=== PATIENT | male | born 1935 | race Caucasian/White ===

== ENCOUNTER 2017-12-18 10:11 | Observation (INO) ==
[2017-12-18] MEDS ORDERED: Sod Chloride 0.9% Inj 1,000 ML IV.SIG ONE (10:41)
--- NOTE | 2017-12-18 10:46 | ED ---
HPI General Chief complaint: GI Bleed Stated complaint: rectal bleeding x 5 days Time Seen by Provider: 12/18/17 10:30 Source: patient Mode of arrival: ambulatory Limitations: no limitations History of Present Illness HPI narrative: Patient is an 82-year-old male who presents the emergency room with complaints of painless bright red rectal bleeding. Patient reports that he does take a baby aspirin daily, reports that for the past 5 days, he has noticed bright red blood in his stools. Patient reports that this has not gotten any better in fact, it has gotten worse. Patient reports that he does have history of hemorrhoids, reports that usually his hemorrhoids do hurt with bowel movements, patient with no pain with his rectal bleeding. Patient denies any abdominal pain, denies any nausea or vomiting, reports that he feels a little weakness. Patient reports that he did have a colonoscopy a few years ago which was negative. Patient with no history of a GI bleed in the past. Related Data Home Medications Medication Instructions Recorded Confirmed acetaminophen 650 mg PO Q6H PRN 12/18/17 12/18/17 aspirin [Aspir-Low] 81 mg PO DAILY 12/18/17 12/18/17 atorvastatin 40 mg PO DAILY 12/18/17 12/18/17 carvedilol 3.125 mg PO BID 12/18/17 12/18/17 cyanocobalamin (vitamin B-12) 1,000 mcg PO DAILY 12/18/17 12/18/17 docusate calcium 240 mg PO DAILY 12/18/17 12/18/17 fexofenadine 180 mg PO DAILY 12/18/17 12/18/17 glipizide 5 mg PO DAILY 12/18/17 12/18/17 losartan 50 mg PO DAILY 12/18/17 12/18/17 montelukast 10 mg PO QPM 12/18/17 12/18/17 pjgjadejjoga-gctqoopz-dpjzcj 1 tab PO DAILY 12/18/17 12/18/17 [Multivitamin 50 Plus] ranitidine HCl 150 mg PO BID 12/18/17 12/18/17 telmisartan 80 mg PO DAILY 12/18/17 12/18/17 torsemide 20 mg PO DAILY 12/18/17 12/18/17 Allergies Allergy/AdvReac Type Severity Reaction Status Date / Time Sulfa (Sulfonamide Allergy Rash Verified 12/18/17 10:18 Antibiotics) Review of Systems ROS: all other systems reviewed are negative [facility] Medical History Medical History Abdominal hernia (Acute) Diabetes 1.5, managed as type 2 (Acute) Hypercholesteremia (Acute) Hypertension (Acute) Pneumonia (Acute) Prostate cancer (Acute) Surgical History Surgical History H/O left inguinal hernia repair (Acute) H/O left knee surgery (Acute) H/O prostatectomy (Acute) Hx of cholecystectomy (Acute) S/P CABG x 1 (Acute) Social History Social History Substance History: No History of Abuse Second Hand Smoke Exposure: No Smoking Status: Former smoker How Often Do You Have a Drink Containing Alcohol: Monthly or less Recent Travel in [facility] within the Last 8 Weeks: No Recent Out of Country Travel within the Last 8 Weeks: No Exam Narrative Exam Narrative: GENERAL: Mild distress SKIN: Focused skin assessment warm/dry. HEAD: Atraumatic. Normocephalic. EYES: Pupils equal and round. No scleral icterus. No injection or drainage. ENT: No nasal bleeding or discharge. Mucous membranes pink and moist. NECK: Trachea midline. No JVD. CARDIOVASCULAR: Regular rate and rhythm. No murmur appreciated. RESPIRATORY: No accessory muscle use. Clear to auscultation. Breath sounds equal bilaterally. GASTROINTESTINAL: Abdomen soft, non-tender, nondistended. Hepatic and splenic margins not palpable. RECTAL: Exam performed with RN at bedside, patient does have a nonthrombosed external hemorrhoid which is not bleeding, on rectal exam, patient also has heme positive melanotic stool. MUSCULOSKELETAL: No obvious deformities. No clubbing. No cyanosis. No edema. NEUROLOGICAL: Awake and alert. No obvious cranial nerve deficits. Motor grossly within normal limits. Normal speech. PSYCHIATRIC: Appropriate mood and affect; insight and judgment normal. Course Initial Documented Vital Signs Temperature 97.8 F 12/18/17 10:14 Pulse Rate 86 12/18/17 10:14 Respiratory Rate 20 12/18/17 10:14 Blood Pressure 178/77 H 12/18/17 10:14 Pulse Oximetry 91 L 12/18/17 10:14 Last Documented Vital Signs Temperature 97.8 F 12/18/17 10:14 Pulse Rate 82 12/18/17 11:13 Respiratory Rate 18 12/18/17 11:13 Blood Pressure 156/72 H 12/18/17 11:13 Pulse Oximetry 92 L 12/18/17 11:14 Medical Decision Making MDM Narrative Medical decision making narrative: During the course of the patients emergency department visit, the patients history, examination, and differential diagnosis were reviewed with the patient. The patient was placed on a sheet metal technician with oximetry and frequent blood pressure monitoring. The patient had an IV access obtained and blood work sent for analysis. The patient was initially provided IV fluids. I ordered a CT of the abdomen and pelvis without contrast for further evaluation of his GI bleed. Patient describes his symptoms as a bright red blood in stools, on exam, he does have cher melena and I am concerned for possible GI bleed. Patient will be typed and screened, CBC as well as CMP was ordered. Ultimately, patient understands need for admission to the hospital for workup of his GI bleed. I do not think that this GI bleed is due to external hemorrhoids The patients laboratory studies were reviewed and remarkable for a hemoglobin of 10.1, coags are within normal limits. Radiology studies were reviewed and remarkable for: CT of the abdomen and pelvis without contrast shows a moderate sigmoid and scattered colonic diverticulosis without definite eminence of difficult colitis Patient with melanotic stool, patient will require a GI workup and admission to the hospital. Call made to hospitalist for admission. case reviewed with Dr. Gonzalez who accepts pt to service Medical Screen Exam Complete: Yes Emergency Medical Condition: Yes Differential Diagnosis Differential Diagnosis: Differential includes external hemorrhoids, internal hemorrhoids, colitis, diverticulitis, gastric ulcer, duodenal ulceration Lab Data Result diagrams: 12/18/17 10:30 12/18/17 10:30 Lab Results 12/18/17 12/18/17 12/18/17 Range/Units 10:30 10:30 10:30 CBC w Diff Auto diff final WBC 9.3 (4.0-11.0) th/mm3 RBC 3.45 L (4.50-5.90) mil/mm3 Hgb 10.1 L (13.0-17.0) gm/dL Hct 31.9 L (39.0-51.0) % MCV 92.6 (80.0-100.0) fL MCH 29.3 (27.0-34.0) pg MCHC 31.6 L (32.0-36.0) % RDW 13.6 (11.6-17.2) % Plt Count 230 (150-450) th/mm3 MPV 7.9 (7.0-11.0) fL Neut % (Auto) 62.6 (16.0-70.0) % Lymph % (Auto) 23.7 (9.0-44.0) % [place] % (Auto) 11.0 H (0.0-8.0) % Eos % (Auto) 2.4 (0.0-4.0) % Baso % (Auto) 0.3 (0.0-2.0) % Neut # (Auto) 5.9 (1.8-7.7) th/mm3 Lymph # (Auto) 2.2 (1.0-4.8) th/mm3 [place] # (Auto) 1.0 H (0.0-0.9) th/mm3 Eos # (Auto) 0.2 (0.0-0.4) th/mm3 Baso # (Auto) 0.0 (0.0-0.2) th/mm3 WBC Differential . Differential Comment . PT 10.6 (9.8-11.6) sec INR 1.0 Ratio APTT 24.7 (23.4-31.7) sec Sodium 144 (136-145) meq/L Potassium 4.2 (3.5-5.1) meq/L Chloride 103 (98-107) meq/L Carbon Dioxide 36.3 H (21.0-32.0) meq/L Anion Gap 5 (5-15) meq/L BUN 21 H (7-18) mg/dL Creatinine 1.20 (0.60-1.30) mg/dL Estimated GFR 58 L (>89) mL/min Random Glucose 317 H (74-106) mg/dL Calcium 8.6 (8.5-10.1) mg/dL Total Bilirubin 0.3 (0.2-1.0) mg/dL AST 15 (15-37) U/L ALT 24 (12-78) U/L Alkaline Phosphatase 93 (45-117) U/L Total Protein 7.3 (6.4-8.2) g/dL Albumin 3.2 L (3.4-5.0) g/dL Imaging Data Radiologist's impression: Abdomen/Pelvis CT 12/18/17 10:41 CONCLUSION: 1. No acute CT abnormality in the abdomen or pelvis. 2. Moderate sigmoid and scattered colonic diverticulosis without definitive evidence for diverticulitis. 3. Additional ancillary findings, as above. Discharge Plan Discharge Disposition Patient Disposition: 30 Still Patient Discharge Condition Condition: Stable Discharge Details Diagnosis: Melena, GI bleed Physicians Team ED Provider: Cynthia Torres Primary Care Provider: [facility] /Orders / Referrals /Forms Prescriptions: No Action losartan 50 mg Tablet 50 mg PO DAILY RF: 0 atorvastatin 40 mg Tablet 40 mg PO DAILY RF: 0 torsemide 20 mg Tablet 20 mg PO DAILY RF: 0 docusate calcium 240 mg Capsule 240 mg PO DAILY RF: 0 cyanocobalamin (vitamin B-12) 1,000 mcg Tablet 1,000 mcg PO DAILY RF: 0 fexofenadine 180 mg Tablet 180 mg PO DAILY RF: 0 carvedilol 3.125 mg Tablet 3.125 mg PO BID RF: 0 ranitidine HCl 150 mg Tablet 150 mg PO BID RF: 0 telmisartan 80 mg Tablet 80 mg PO DAILY RF: 0 montelukast 10 mg Tablet 10 mg PO QPM RF: 0 glipizide 5 mg Tablet 5 mg PO DAILY RF: 0 eugwnubafuph-mzgcmbor-opcxhv [Multivitamin 50 Plus] Tablet 1 tab PO DAILY RF: 0 acetaminophen 325 mg Capsule 650 mg PO Q6H PRN (Reason: Pain) RF: 0 aspirin [Aspir-Low] 81 mg Tablet,Delayed Release (Dr/Ec) 81 mg PO DAILY RF: 0 Status ED Status: With Doctor
[2017-12-18 11:03] LABS: Baso % (Auto) 0.3 % (0.0-2.0); Eos # (Auto) 0.2 th/mm3 (0.0-0.4); Eos % (Auto) 2.4 % (0.0-4.0); Hematocrit 31.9 % (39.0-51.0); Hemoglobin 10.1 gm/dL (13.0-17.0); Lymph # (Auto) 2.2 th/mm3 (1.0-4.8); Lymph % (Auto) 23.7 % (9.0-44.0); Mean Corpuscular HGB Conc 31.6 % (32.0-36.0); Mean Corpuscular Hemoglobin 29.3 pg (27.0-34.0); Mean Corpuscular Volume 92.6 fL (80.0-100.0); Mean Platelet Volume 7.9 fL (7.0-11.0); Neut # (Auto) 5.9 th/mm3 (1.8-7.7); Neut % (Auto) 62.6 % (16.0-70.0); Platelet Count 230 th/mm3 (150-450); Red Blood Count 3.45 mil/mm3 (4.50-5.90); Red Cell Distribution Width 13.6 % (11.6-17.2); White Blood Count 9.3 th/mm3 (4.0-11.0)
[2017-12-18 11:12] LABS: Chloride 103 meq/L (98-107); Potassium 4.2 meq/L (3.5-5.1); Sodium 144 meq/L (136-145)
[2017-12-18 11:15] LABS: Calcium 8.6 mg/dL (8.5-10.1)
[2017-12-18 11:16] LABS: Activated Partial Thrombo Time 24.7 sec (23.4-31.7); Albumin 3.2 g/dL (3.4-5.0); Anion Gap 5 meq/L (5-15); Blood Urea Nitrogen 21 mg/dL (7-18); Carbon Dioxide 36.3 meq/L (21.0-32.0); Glucose,Random 317 mg/dL (74-106); Prothrombin Time 10.6 sec (9.8-11.6)
[2017-12-18 11:19] LABS: Alanine Aminotransferase 24 U/L (12-78); Aspartate Aminotransferase 15 U/L (15-37); Glomerular Filtration Rate 58 mL/min (>89)
[2017-12-18 11:20] LABS: Total Protein 7.3 g/dL (6.4-8.2)
--- NOTE | 2017-12-18 11:20 | CT ---
EXAM DATE: 12/18/2017 11:05 AM EST AGE/SEX: 82 years / Male INDICATIONS: Rectal bleeding. Blood in stool. CLINICAL DATA: This is the patient's initial encounter. Patient reports that signs and symptoms have been present for 4 - 6 days and indicates a pain score of 0/10. MEDICAL/SURGICAL HISTORY: Carcinoma, prostatic. Diabetes. Hypertension. Inguinal hernia repai r. Prostatectomy. Cholecystectomy. CABG. RADIATION DOSE: 24.50 CTDI (mGy) ; Patient body habitus COMPARISON: No prior exams available for comparison. TECHNIQUE: Multiple contiguous axial images were obtained through the abdomen. Images were obtained using multiple row detector helical technique. Using automated exposure control and adjustment of the mA and/or kV according to patient size, radiation dose was kept as low as reasonably achievable to o btain optimal diagnostic quality images. DICOM format image data is available electronically for rev iew and comparison. FINDINGS: LOWER LUNGS: The visualized lower lungs are clear. LIVER: Diffusely homogeneous density without intrahepatic ductal dilatation or volume loss. There is a 17 mm well-defined cystic density mass adjacent to the inferior right lobe of the liver. This does not appear to arise from the liver. This may reflect an old evolved hematoma amongst other etiologie s. SPLEEN: Homogeneous density without enlargement. PANCREAS: Grossly unremarkable. KIDNEYS: Kidneys are symmetrical in size without evidence for radiopaque renal calculi or hydronephr osis. No significant contour deforming renal abnormality. ADRENAL GLANDS: Unremarkable. AORTA: Jillian-aneurysmal. BOWEL/MESENTERY: Scattered colonic diverticulosis with moderate sigmoid diverticulosis. No definitiv e inflammatory change to suggest diverticulitis. Normal appendix. Bowel loops are normal in caliber w ithout evidence for obstruction. There is no free fluid or drainable fluid collections. There is no f ree air. ABDOMINAL WALL: Intact. BLADDER: Decompressed but otherwise unremarkable. REPRODUCTIVE: Status post prostatectomy. BONY STRUCTURES: Degenerative spondylosis of the lumbar spine. CONCLUSION: 1. No acute CT abnormality in the abdomen or pelvis. 2. Moderate sigmoid and scattered colonic diverticulosis without definitive evidence for diverticuli tis. 3. Additional ancillary findings, as above. Electronically signed by: Hipolito Lim MD 12/18/2017 11:19 AM EST
[2017-12-18 11:22] LABS: Alkaline Phosphatase 93 U/L (45-117)
[2017-12-18] MEDS ORDERED: Acetaminophen 325 MG Tablet PO PRN (11:26)
[2017-12-18] MEDS ORDERED: Bisacodyl 10 MG Supp RECTAL PRN (11:26)
[2017-12-18] MEDS ORDERED: Dextrose 50% in Water 50 ML Vial IV.PUSH PRN (11:30)
--- NOTE | 2017-12-18 12:07 | P.HP ---
History of Present Illness Service: Hospitalist Primary Care Physician: [facility] Chief Complaint: Rectal bleed. History of Present Illness: Mr. Rai is a pleasant 82-year-old male with a history of CAD status post CABG, diabetes mellitus, hypertension who presented to the emergency department on 12/18/2017 due to painless bright red rectal bleeding that started 5 days prior to this admission. Patient takes baby aspirin a day. He reports no nausea vomiting or diaphoresis. He reports no melena or hematemesis. He does report increasing leg swelling despite taking torsemide. Denies any shortness of breath. Denies any changes in bladder habits. He recently moved here from [place]. He goes to [place] for [facility] care. His last colonoscopy was approximately 2 years ago. Upon admission, his hemoglobin is 10.1. Past medical history: Hypertension, hyperlipidemia, GERD, diabetes mellitus, CAD , COPD, prostate cancer Past surgical history CABG, cholecystectomy, prostate surgery Social history: Patient denies using tobacco or alcohol currently. Family history: Negative for Alzheimer's or Parkinson's. Review of Systems All other systems reviewed negative except as stated in HPI PMFSH - History History Provided By: Patient - Medical History Medical History: Medical History (Last Reviewed 12/18/17 @ 12:48 by Saray Gonzalez DO) Abdominal hernia Diabetes 1.5, managed as type 2 Hypercholesteremia Hypertension Pneumonia Prostate cancer - Surgical History Surgical History: Surgical History (Last Reviewed 12/18/17 @ 12:48 by Saray Gonzalez DO) H/O left inguinal hernia repair H/O left knee surgery H/O prostatectomy Hx of cholecystectomy S/P CABG x 1 - Tobacco History Second Hand Smoke Exposure: No Tobacco Use In Past 30 Days: No (QUIT 2001) Smoking Status: Former smoker - Alcohol History How Often Do You Have a Drink Containing Alcohol: Monthly or less - Substance Use History Substance History: No History of Abuse - Travel History Recent Travel in the [place] Within the Last 8 Weeks: No Recent Travel Out of the Country Within the Last 8 Weeks: No - Immunization History Tetanus Immunization: <5 Years Medications and Allergies Active Medications: Active Medications Acetaminophen (Tylenol) 650 mg PO Q4H PRN PRN Reason: Headache, fever, pain 1-4 Al Hydroxide/Mg Hydroxide (Milk Of Magnesia Liq) 30 ml PO Q12H PRN PRN Reason: Mild Constipation Bisacodyl (Dulcolax Supp) 10 mg RECTAL DAILY PRN PRN Reason: SEVERE CONSITIPATION Dextrose (D50w Vial) 50 ml IV.PUSH UNSCH PRN PRN Reason: PER HYPOGLYCEMIA PROTOCOL Glucagon (Glucagon Inj) 1 mg OTHER PRN PRN PRN Reason: for Hypoglycemia Protocol Insulin Aspart (Novolog Insulin Correctional Sugar Inj) 0 unit SQ ACHS LEVI; Protocol Insulin Detemir (Levemir Inj) 7 unit SQ HS LEVI Lactulose (Lactulose Liq) 30 ml PO DAILY PRN PRN Reason: SEVERE CONSITIPATION Ondansetron HCl (Zofran Inj) 4 mg IV.PUSH Q6H PRN PRN Reason: NAUSEA OR VOMITING Pantoprazole Sodium (Protonix Inj) 40 mg IV.PUSH Q12H LEVI Sennosides (Senokot) 17.2 mg PO Q12H PRN PRN Reason: Moderate Constipation Sodium Chloride (Ns Flush) 2 ml IV.FLUSH PRN PRN PRN Reason: FLUSH AFTER USING IV ACCESS Allergies Allergy/AdvReac Type Severity Reaction Status Date / Time Sulfa (Sulfonamide Allergy Rash Verified 12/18/17 10:18 Antibiotics) Home Medications Medication Instructions Recorded Confirmed Type acetaminophen 650 mg PO Q6H PRN 12/18/17 12/18/17 History aspirin [Aspir-Low] 81 mg PO DAILY 12/18/17 12/18/17 History atorvastatin 40 mg PO DAILY 12/18/17 12/18/17 History carvedilol 3.125 mg PO BID 12/18/17 12/18/17 History cyanocobalamin (vitamin B-12) 1,000 mcg PO DAILY 12/18/17 12/18/17 History docusate calcium 240 mg PO DAILY 12/18/17 12/18/17 History fexofenadine 180 mg PO DAILY 12/18/17 12/18/17 History glipizide 5 mg PO DAILY 12/18/17 12/18/17 History losartan 50 mg PO DAILY 12/18/17 12/18/17 History montelukast 10 mg PO QPM 12/18/17 12/18/17 History eytvzaozjhti-lviruxpm-deandb 1 tab PO DAILY 12/18/17 12/18/17 History [Multivitamin 50 Plus] ranitidine HCl 150 mg PO BID 12/18/17 12/18/17 History telmisartan 80 mg PO DAILY 12/18/17 12/18/17 History torsemide 20 mg PO DAILY 12/18/17 12/18/17 History Exam Vital signs: Vital Signs 12/18/17 10:14 12/18/17 11:13 12/18/17 11:14 Temperature 97.8 F Pulse Rate 86 82 Respiratory Rate 20 18 Blood Pressure 178/77 H 156/72 H Pulse Oximetry 91 L 92 L 92 L Intake & Output 12/17/17 12/18/17 12/18/17 18:59 06:59 18:59 Weight 117 kg Other: Date of Last Bowel Movement 12/18/17 Narrative: GENERAL: This is a well-nourished, well-developed patient, in no apparent distress. Morbidly obese SKIN: No rashes, ecchymoses or lesions. Warm and dry. HEAD: Atraumatic. Normocephalic. No temporal or scalp tenderness. EYES: Pupils equal round and reactive. No injection or drainage. ENT: Nose without bleeding, purulent drainage or septal hematoma. Airway patent. NECK: Trachea midline. No lymphadenopathy. Supple, nontender, no meningeal signs. CARDIOVASCULAR: Regular rate and rhythm without murmurs, gallops, or rubs. No JVD. RESPIRATORY: Moderate air entry. No appreciable wheezing. Minor crackles in the lung bases. GASTROINTESTINAL: Abdomen soft, non-tender, nondistended. No guarding. MUSCULOSKELETAL: Extremities without clubbing, cyanosis. 2+ edema in lower extremities. NEUROLOGICAL: Awake and alert. Cranial nerves II through XII intact. No focal neurological deficits. Normal speech. Results - Labs CBC & Chem 7: 12/18/17 10:30 12/18/17 10:30 Labs: Laboratory Results - last 24 hr 12/18/17 12/18/17 12/18/17 10:30 10:30 10:30 CBC w Diff Auto diff final WBC 9.3 RBC 3.45 L Hgb 10.1 L Hct 31.9 L MCV 92.6 MCH 29.3 MCHC 31.6 L RDW 13.6 Plt Count 230 MPV 7.9 Neut % (Auto) 62.6 Lymph % (Auto) 23.7 [place] % (Auto) 11.0 H Eos % (Auto) 2.4 Baso % (Auto) 0.3 Neut # (Auto) 5.9 Lymph # (Auto) 2.2 [place] # (Auto) 1.0 H Eos # (Auto) 0.2 Baso # (Auto) 0.0 WBC Differential . Differential Comment . PT 10.6 INR 1.0 APTT 24.7 Sodium 144 Potassium 4.2 Chloride 103 Carbon Dioxide 36.3 H Anion Gap 5 BUN 21 H Creatinine 1.20 Estimated GFR 58 L POC Glucose Random Glucose 317 H Calcium 8.6 Total Bilirubin 0.3 AST 15 ALT 24 Alkaline Phosphatase 93 Total Protein 7.3 Albumin 3.2 L 12/18/17 11:40 CBC w Diff WBC RBC Hgb Hct MCV MCH MCHC RDW Plt Count MPV Neut % (Auto) Lymph % (Auto) [place] % (Auto) Eos % (Auto) Baso % (Auto) Neut # (Auto) Lymph # (Auto) [place] # (Auto) Eos # (Auto) Baso # (Auto) WBC Differential Differential Comment PT INR APTT Sodium Potassium Chloride Carbon Dioxide Anion Gap BUN Creatinine Estimated GFR POC Glucose 266 H Random Glucose Calcium Total Bilirubin AST ALT Alkaline Phosphatase Total Protein Albumin - Imaging Impressions Abdomen/Pelvis CT 12/18/17 10:41 CONCLUSION: 1. No acute CT abnormality in the abdomen or pelvis. 2. Moderate sigmoid and scattered colonic diverticulosis without definitive evidence for diverticulitis. 3. Additional ancillary findings, as above. Caprini VTE Risk Assessment Caprini VTE Risk Assessment: No/Low Risk (score <= 1) Caprini Risk Assessment Model: Point Value = 1 Point Value = 2 Point Value = 3 Point Value = 5 Age 41-60 Minor surgery BMI > 25 kg/m2 Swollen legs Varicose veins or History of unexplained or recurrent spontaneous Oral contraceptives or hormone replacement Sepsis (< 1 month) Serious lung disease, including pneumonia (< 1 month) Abnormal pulmonary function Acute myocardial infarction Congestive heart failure (< 1 month) History of inflammatory bowel disease Medical patient at bed rest Age 61-74 Arthroscopic surgery Major open surgery (> 45 min) Laparoscopic surgery (> 45 min) Malignancy Confined to bed (> 72 hours) Immobilizing plaster cast Central venous access Age >= 75 History of VTE Family history of VTE Factor V Leiden Prothrombin [id number] Lupus anticoagulant Anticardiolipin antibodies Elevated serum homocysteine Heparin-induced thrombocytopenia Other congenital or acquired thrombophilia Stroke (< 1 month) Elective arthroplasty Hip, pelvis, or leg fracture Acute spinal cord injury (< 1 month) Prophylaxis Regimen: Total Risk Factor Score Risk Level Prophylaxis Regimen 0-1 Low Early ambulation 2 Moderate Order ONE of the following: *Sequential Compression Device (SCD) *Heparin 5000 units SQ BID 3-4 Higher Order ONE of the following medications: *Heparin 5000 units SQ TID *Enoxaparin/Lovenox 40 mg SQ daily (WT < 150 kg, CrCl > 30 mL/min) *Enoxaparin/Lovenox 30 mg SQ daily (WT < 150 kg, CrCl > 10-29 mL/min) *Enoxaparin/Lovenox 30 mg SQ BID (WT < 150 kg, CrCl > 30 mL/min) AND/OR *Sequential Compression Device (SCD) 5 or more Highest Order ONE of the following medications: *Heparin 5000 units SQ TID (Preferred with Epidurals) *Enoxaparin/Lovenox 40 mg SQ daily (WT < 150 kg, CrCl > 30 mL/min) *Enoxaparin/Lovenox 30 mg SQ daily (WT < 150 kg, CrCl > 10-29 mL/min) *Enoxaparin/Lovenox 30 mg SQ BID (WT < 150 kg, CrCl > 30 mL/min) AND *Sequential Compression Device (SCD) Assessment and Plan - Plan Mr. Lopez is a pleasant 82-year-old male with a history of CAD status post CABG, diabetes mellitus, hypertension who presents to the emergency department due to rectal bleeding that started about 5 days ago. Patient denies any emesis or melena. Hemoglobin 10.1 on admission. Acute GI bleed Start patient on Protonix 40 mg IV every 12 hours Consult GI for possible colonoscopy. No indication to transfuse currently. Will transfuse if hemoglobin drops further. CAD status post CABG Congestive heart failure unknown whether systolic or diastolic We will continue torsemide 20 mg daily. Continue Coreg 3.125 twice daily Continue atorvastatin 40 mg daily Diabetes mellitus Start sliding scale insulin and Levemir 7 units nightly. Full code. SCDs.
[2017-12-18] MEDS: Pantoprazole Inj 40 MG Vial IV.PUSH SCH (12:23)
[2017-12-18] MEDS ORDERED: PEG 3350/E-Lyte Soln 4000 ML Bottle PO ONE (13:10)
--- NOTE | 2017-12-18 13:39 | MB ---
cc: Rajiv German MD, Shahabuddin DO Zulfiqar, Hassan MD DATE: 12/18/2017 REASON FOR CONSULTATION: Rectal bleeding and anemia. HISTORY OF PRESENT ILLNESS: Mr. Rai is an 82-year-old gentleman with painless rectal bleeding for the last 4 days. He said he has been having intermittent red blood. Initially, he thought this was related to his hemorrhoids, but he states the bleeding has persisted and has been more than what he has had before with his hemorrhoids. He reports a colonoscopy about 2 years ago through the [place] [facility]. He says he may have had diverticulosis and polyps, but he is not sure of the findings. PAST MEDICAL HISTORY: Hypertension, hyperlipidemia, reflux disease, diabetes, coronary artery disease, COPD, history of prostate cancer. PAST SURGICAL HISTORY: Cholecystectomy, prostate surgery, coronary artery bypass surgery. SOCIAL HISTORY: No tobacco, no alcohol. FAMILY HISTORY: Noncontributory. REVIEW OF SYSTEMS: The patient is having no abdominal pain. No nausea, vomiting. No symptoms at this time. CURRENT MEDICATIONS: Include: 1. Insulin. 2. Pantoprazole. PHYSICAL EXAMINATION: GENERAL: Reveals a well-nourished man in no apparent distress. VITAL SIGNS: Stable. HEAD AND NECK: Anicteric sclerae. CHEST: Bilateral air entry with rales. ABDOMEN: Soft, obese, nontender. No hepatosplenomegaly. Bowel sounds are present. CENTRAL NERVOUS SYSTEM: Nonfocal. RECTAL: Deferred at this time. LABORATORY DATA: Revealed a hemoglobin of 10.1. INR is 1. Creatinine is 1.20. CT of the abdomen and pelvis reveals diverticulosis, but no other significant findings. IMPRESSION: Lower gastrointestinal bleed, probably from diverticulosis. RECOMMENDATIONS: Options discussed with the patient. Tentatively, we have agreed to proceed with a colonoscopy tomorrow. GoLYTELY prep has been ordered. Continue to monitor labs. Liquid diet at this time. Further recommendations to follow. Thank you for this ref. MD HOMER Anthony/cristel , 01:14 PM , 01:19 PM
[2017-12-18] MEDS: Insulin NovoLOG Aspart Correctional Sugar Inj SQ SCH ×3 (13:51→21:39)
[2017-12-18] MEDS ORDERED: Insulin Detemir Inj 1,000 UNIT/10 ML Vial SQ SCH (21:00)
--- NOTE | 2017-12-18 21:49 | ECG ---
Date Performed: 12/18/2017 Time Performed: 17:23:11 PTAGE: 82 years EKG: Sinus rhythm NONSPECIFIC T-WAVE ABNORMALITY ABNORMAL ECG NO PREVIOUS TRACING DOCTOR: Yosi Clark Interpretating Date/Time 12/18/2017 21:47:08
[2017-12-19] MEDS: Pantoprazole Inj 40 MG Vial IV.PUSH SCH (00:59)
--- NOTE | 2017-12-19 07:59 | P.PN ---
Subjective Interval history: Follow-up for rectal bleed. Patient reports that rectal bleed has improved quite significantly. This morning he noticed a small amount. No fever or chills. He prepared for colonoscopy this morning. He is currently on room air. Physical Exam Vital signs: Vital Signs 12/18/17 10:14 12/18/17 11:13 12/18/17 11:14 Temperature 97.8 F Pulse Rate 86 82 Respiratory Rate 20 18 Blood Pressure 178/77 H 156/72 H Pulse Oximetry 91 L 92 L 92 L 12/18/17 16:00 12/18/17 19:56 12/19/17 00:00 Temperature 97.3 F L 97.0 F L 96.9 F L Pulse Rate 72 73 76 Respiratory Rate 18 18 18 Blood Pressure 168/73 H 180/72 H 130/62 Pulse Oximetry 98 93 L 93 L Intake & Output 12/18/17 12/19/17 12/19/17 18:59 06:59 18:59 Intake Total 1640 / 1640 Output Total 200 / 200 Balance 1440 / 1440 Weight 117 kg 118.3 kg Intake: IV 1000 / 1000 NS Inj 1,000 ML @ Wide Open IV. 1000 / 1000 SIG BOLUS ONE Rx#:[id number] Oral 640 / 640 Output: Urine 200 / 200 Other: # Voids 2 6 Date of Last Bowel Movement 12/18/17 # Bowel Movements 10 Narrative: GENERAL: Alert, oriented x3, NAD. On room air. SKIN: Warm and dry. HEAD: Normocephalic. EYES: No scleral icterus. No injection or drainage. NECK: Supple, trachea midline. No JVD or lymphadenopathy. CARDIOVASCULAR: Regular rate and rhythm without murmurs, gallops, or rubs. RESPIRATORY: Breath sounds equal bilaterally. No accessory muscle use. GASTROINTESTINAL: Abdomen soft, non-tender, nondistended. MUSCULOSKELETAL: No cyanosis. 1+ edema in lower extremity's. BACK: Nontender without obvious deformity. No CVA tenderness. Results - Labs CBC & Chem 7: 12/18/17 10:30 12/18/17 10:30 Laboratory Results - last 24 hr 12/18/17 12/18/17 12/18/17 10:30 10:30 10:30 CBC w Diff Auto diff final WBC 9.3 RBC 3.45 L Hgb 10.1 L Hct 31.9 L MCV 92.6 MCH 29.3 MCHC 31.6 L RDW 13.6 Plt Count 230 MPV 7.9 Neut % (Auto) 62.6 Lymph % (Auto) 23.7 [place] % (Auto) 11.0 H Eos % (Auto) 2.4 Baso % (Auto) 0.3 Neut # (Auto) 5.9 Lymph # (Auto) 2.2 [place] # (Auto) 1.0 H Eos # (Auto) 0.2 Baso # (Auto) 0.0 WBC Differential . Differential Comment . PT 10.6 INR 1.0 APTT 24.7 Sodium 144 Potassium 4.2 Chloride 103 Carbon Dioxide 36.3 H Anion Gap 5 BUN 21 H Creatinine 1.20 Estimated GFR 58 L POC Glucose Random Glucose 317 H Calcium 8.6 Total Bilirubin 0.3 AST 15 ALT 24 Alkaline Phosphatase 93 Total Protein 7.3 Albumin 3.2 L Blood Type Blood Type Recheck Antibody Screen 12/18/17 12/18/17 12/18/17 10:30 11:40 13:32 CBC w Diff WBC RBC Hgb Hct MCV MCH MCHC RDW Plt Count MPV Neut % (Auto) Lymph % (Auto) [place] % (Auto) Eos % (Auto) Baso % (Auto) Neut # (Auto) Lymph # (Auto) [place] # (Auto) Eos # (Auto) Baso # (Auto) WBC Differential Differential Comment PT INR APTT Sodium Potassium Chloride Carbon Dioxide Anion Gap BUN Creatinine Estimated GFR POC Glucose 266 H 227 H Random Glucose Calcium Total Bilirubin AST ALT Alkaline Phosphatase Total Protein Albumin Blood Type O Positive Blood Type Recheck Required Antibody Screen Negative 12/18/17 12/18/17 12/19/17 16:39 21:21 07:15 CBC w Diff WBC RBC Hgb Hct MCV MCH MCHC RDW Plt Count MPV Neut % (Auto) Lymph % (Auto) [place] % (Auto) Eos % (Auto) Baso % (Auto) Neut # (Auto) Lymph # (Auto) [place] # (Auto) Eos # (Auto) Baso # (Auto) WBC Differential Differential Comment PT INR APTT Sodium Potassium Chloride Carbon Dioxide Anion Gap BUN Creatinine Estimated GFR POC Glucose 140 H 99 169 H Random Glucose Calcium Total Bilirubin AST ALT Alkaline Phosphatase Total Protein Albumin Blood Type Blood Type Recheck Antibody Screen - Imaging Impressions Abdomen/Pelvis CT 12/18/17 10:41 CONCLUSION: 1. No acute CT abnormality in the abdomen or pelvis. 2. Moderate sigmoid and scattered colonic diverticulosis without definitive evidence for diverticulitis. 3. Additional ancillary findings, as above. - Procedures Colonoscopy 12/19/2017 Assessment and Plan - Plan Mr. Lopez is a pleasant 82-year-old male with a history of CAD status post CABG, diabetes mellitus, hypertension who presents to the emergency department due to rectal bleeding that started about 5 days ago. Patient denies any emesis or melena. Hemoglobin 10.1 on admission. Acute GI bleed DC IV Protonix and start p.o. Protonix Consult GI -colonoscopy today. No indication to transfuse currently. Symptoms improved. Will check H&H this morning. CAD status post CABG Congestive heart failure unknown whether systolic or diastolic We will continue torsemide 10mg BID. Continue Coreg 3.125 twice daily Continue atorvastatin 40 mg daily Patient will contact [facility] to establish care. Diabetes mellitus sliding scale insulin and Levemir 7 units nightly. Full code. SCDs.
[2017-12-19] MEDS: Insulin NovoLOG Aspart Correctional Sugar Inj SQ SCH ×3 (08:00→16:52)
[2017-12-19] MEDS ORDERED: Chlorhexidine Gluconate 2% 1 Pack (2 Cloths) TOPICAL ONE (08:43)
[2017-12-19] MEDS ORDERED: Metoprolol Tartrate 25 MG Tablet PO ONE (08:43)
[2017-12-19] MEDS ORDERED: Sodium Chlor 0.9% Inj 500 ML IV.SIG SCH (09:00)
[2017-12-19] MEDS ORDERED: Lidocaine PF 1% Inj 5 ML Syringe INFILTRATN ONE (09:55)
--- NOTE | 2017-12-19 09:57 | GIPROC ---
[facility] [address] [place] [address], [id number] COLONOSCOPY PROCEDURE REPORT EXAM DATE: 12/19/2017 PATIENT NAME: Alexx Rai MR #: [id number] BIRTHDATE: 1935 ENDOSCOPIST: Federico Lee MD ORDER #: [id number] SEXUAL [employer]AULT RESPONSE COORDINATOR: Shanna Espinal and Nany Conn STATUS: inpatient INDICATIONS: The patient is a 82 yr old male here for a colonoscopy due to hematochezia PROCEDURE PERFORMED: Colonoscopy, diagnostic MEDICATIONS: None and Per Anesthesia. PREP QUALITY: poor ESTIMATED BLOOD LOSS: None CONSENT: The patient understands the risks and benefits of the procedure and understands that these risks include, but are not limited to: sedation, allergic reaction, infection, perforation and/or bleeding. Alternative means of evaluation and treatment include, among others: physical exam, x-rays, and/or surgical intervention. The patient elects to proceed with this endoscopic procedure. medical equipment was checked for proper function. Hand hygiene and appropriate measures for infection prevention was taken. After the risks, benefits and alternatives of the procedure were thoroughly explained, Informed consent was verified, confirmed and timeout was successfully executed by the treatment team. A digital exam was performed and revealed no abnormalities of the rectum The Pentax [id number] endoscope was introduced through the anus and advanced to the cecum, which was identified by both the appendix and ileocecal valve. The instrument was then slowly withdrawn as the colon was fully examined. COLON FINDINGS: There was severe diverticulosis noted throughout the entire examined colon with associated tortuosity. No bleeding was noted from the diverticulosis. Retroflexed views revealed internal hemorrhoids and Retroflexed views revealed medium internal hemorrhoids The scope was then completely withdrawn from the patient and the procedure terminated. PROCEDURE WITHDRAWAL TIME:8minutes ADVERSE EVENTS: There were no complications. IMPRESSIONS: 1. There was severe diverticulosis noted throughout the entire examined colon 2. Retroflexed views revealed internal hemorrhoids 3. Retroflexed views revealed medium internal hemorrhoids 4. Was performed 5. Revealed no abnormalities of the rectum RECOMMENDATIONS: 1. Monitor CBC q 12 hrs 2. Supportive tx RECALL: Return 1 year Colonoscopy Federico Lee MD eSigned: Federico Lee MD 12/19/2017 9:57 AM cc:
[2017-12-19 13:16] LABS: Hematocrit 30.4 % (39.0-51.0); Hemoglobin 9.6 gm/dL (13.0-17.0)
[2017-12-19 13:30] VITALS: O2SAT 95
[2017-12-19 16:00] VITALS: BP 172/72; PULSE 80; RESP 18; TEMP 98.4
== END 2017-12-19 17:40 | disposition home or self-care (01) ==
LOC: PHED 10:11 → PHEDA 10:11 → PH3 12:45
PROVIDERS: ADMIT Hospitalist; ATTEND Hospitalist
PROC: COLONOS (2017-12-19 09:32)